=== PATIENT | female | born 1955 | race Caucasian/White ===

== ENCOUNTER 2023-06-08 08:07 | Outpatient (CLI) | payer OTHER | END 2023-06-08 08:08 | disposition home or self-care (01) | LOC: NM 08:07 | PROVIDERS: ATTEND Internal Medicine Endocrinology, Diabetes & Metabolism | DX: E05.80 Other thyrotoxicosis without thyrotoxic crisis or storm (principal) | CPT/HCPCS: 78014; A9516 ==